=== PATIENT | male | born 1960 | race Caucasian/White ===

== ENCOUNTER 2016-11-29 00:08 | Emergency (ER) | payer OTHER ==
[2016-11-29] MEDS ORDERED: NS 1,000 ML IV ONE (00:14)
--- NOTE | 2016-11-29 00:19 | EDPHY ---
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 He presents emergency room with 1/10 right hand pain he has an open fracture of the 3rd digit and 4th digit distal aspect. It is noted his hand is very dirty and greasy. This time is hemodynamically stable no acute distress resting comfortably. No arterial bleeding or significant bleeding from his hand injury at this time. He is neurovascularly intact good cap refill, good pulse. Past Medical History: No significant medical history Past Surgical History: Denies significant surgical history Social History: Denies daily use drugs alcohol tobacco products, he is a mechanical engineering director right-hand dominant Family History: Noncontributory ROS REVIEW OF SYSTEMS: A comprehensive 10 point review of systems is otherwise negative aside from elements mentioned in the history of present illness. Exam Constitutional triage nursing summary reviewed, vital signs reviewed, awake/ alert. Eyes normal conjunctivae and sclera, EOMI, PERRLA. HENT normal inspection, atraumatic, moist mucus membranes, no epistaxis, neck supple/ no meningismus, no raccoon eyes. Respiratory clear to auscultation bilaterally, normal breath sounds, no respiratory distress, no wheezing. Cardiovascular rate normal, regular rhythm, no murmur, no edema, distal pulses normal. Gastrointestinal soft, non-tender, no rebound, no guarding, normal bowel sounds, no distension, no pulsatile mass. Genitourinary no CVA tenderness. Musculoskeletal right hand: Neurovascularly intact good cap refill, good pulses , good sensation, neurovascularly intact, does have a open fracture of the distal aspect of the 2rd and 3th digit with bone present. no midline vertebral tenderness, full range of motion, no calf swelling, no tenderness of extremities , no meningismus, good pulses, neurovascularly intact. The patient has laceration on the index finger 2nd digit is macerated, multiple pieces, bone involvement. 3rd digit laceration distal aspect, removed the nail from underneath the nail bed otherwise no obvious bone or open fracture. Skin pink, warm, & dry, no rash, skin atraumatic. Neurologic awake, alert and oriented x 3, AAOx3, moves all 4 extremities equally, motor intact, sensory intact, CN II-XII intact, normal cerebellar, normal vision, normal speech. Psychiatric normal mood/affect. Heme/Lymph/Immune no lymphadenopathy. Differential Diagnosis: Includes but is not limited to in a particular order: Right hand injury, soft tissue injury, multiple right hand fractures, degloving injury, distal phalanx fracture Medical Decision Making: this patient had an IV established will receive a g Ancef, his tetanus shot is up-to-date, he will have an x-ray of his right hand and I will need to consult Hand surgery. Patient's hand will be copiously cleaned here he will receive IV pain medicine Dilaudid for pain control. Re-evaluation: ED x-ray right hand: This shows a comminuted open fracture of the distal phalanx 3rd digit, also a fracture of the 2nd digit distal phalanx tuft fracture. Comminuted on the 3rd digit, and small fracture to the 2nd digit. Otherwise unremarkable. 1246: Spoke with Dr. Diego with Hand surgery. We reviewed the case. Plan for follow up in outpatient clinic on Saturday. Plan for antibiotics here in the emergency room, antibiotics for home, finger splints, and gentle closure of his wounds. Will perform digital block. 0150: spoke with Dr. Diego again about this patient's almost complete amputation of the distal phalanx of the middle finger and index finger. I was able to tack down the distal aspect of the soft tissue of the middle finger that was hanging off. I did have to remove his nail. As for his index finger was able to place the nail back under the nail bed without any sutures. Both fingers will be splinted, he will be sent home on antibiotics, [place] for pain control will have dressings in place. Plan is to see Dr. Diego with Hand surgery on Saturday or 1 day from now. The patient understands return emergency room if he has any further pain, fever, worsening swelling, bleeding or questions or concerns. He does understand that he has comminuted fractures of the distal phalanx of his index and middle finger. He will need to have the distal aspect of his middle finger amputated. 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 Laceration Repair Procedure: Verbal Consent was obtained, Under sterile conditions, The patient had lidocaine without epinephrine used approximately 10 ccs to local anesthetize the Index finger distal masserated Laceration. The wound was copiously irrigated with sterile fluid, the wound was explored for foreign bodies there were none visualized, the wound was explored with a sterile glove to the base. The nail was removed from the index finger, There are no deep structures involved, including no arterial injury. 3 interrupted 5 0 Prolene Sutures were placed in this patient's laceration. He had good close approximation of the wound edges. He Tolerated this well. The purpose of this was to tack down the macerated tissue at the end of the index finger. Patient had his index finger and middle finger or 2nd and 3rd digits he had a digital block performed of both digits by myself he tolerated this well this led to good local anesthesia of his significant macerated lacerations of his fingers. Source: Patient, EMS Constitutional: Initial Vital Signs Temperature (C) 36.5 C 11/29/16 00:16 Heart Rate 104 H 11/29/16 00:16 Respiratory Rate 18 11/29/16 00:16 Blood Pressure 127/77 H 11/29/16 00:16 O2 Sat (%) 97 11/29/16 00:16 O2 Delivery Mode Room Air Allergies/Adverse Reactions: No Known Allergies Allergy (Unverified 11/29/16 00:31) Home Medications: Medication Instructions Recorded Cephalexin [Keflex] 500 mg PO Q6H #28 cap 11/29/16 Hydrocodone/Acetaminophen 1 each PO Q4-6PRN PRN #30 tablet 11/29/16 [Hydrocodon-Acetaminophen 5-325] Medical Decision Making - Data Points Laboratory Results: Laboratory Results 11/29/16 00:30 11/29/16 00:30 11/29/16 00:30 WBC 7.00 10^3/uL (3.80-9.50) RBC 4.56 10^6/uL (4.40-6.38) Hgb 15.3 g/dL (13.7-17.5) Hct 42.7 % (40.0-51.0) MCV 93.6 fL (81.5-99.8) MCH 33.6 pg (27.9-34.1) MCHC 35.8 g/dL (32.4-36.7) RDW 12.1 % (11.5-15.2) Plt Count 203 10^3/uL (150-400) MPV 10.4 fL (8.7-11.7) Neut % (Auto) 54.8 % (39.3-74.2) Lymph % (Auto) 34.4 % (15.0-45.0) [place] % (Auto) 8.7 % (4.5-13.0) Eos % (Auto) 1.4 % (0.6-7.6) Baso % (Auto) 0.6 % (0.3-1.7) Nucleat RBC Rel Count 0.0 % (0.0-0.2) Absolute Neuts (auto) 3.83 10^3/uL (1.70-6.50) Absolute Lymphs (auto) 2.41 10^3/uL (1.00-3.00) Absolute Monos (auto) 0.61 10^3/uL (0.30-0.80) Absolute Eos (auto) 0.10 10^3/uL (0.03-0.40) Absolute Basos (auto) 0.04 10^3/uL (0.02-0.10) Absolute Nucleated RBC 0.00 10^3/uL (0-0.01) Immature Gran % 0.1 % (0.0-1.1) Immature Gran # 0.01 10^3/uL (0.00-0.10) PT 13.9 SEC (12.0-15.0) INR 1.08 (0.83-1.16) APTT 29.2 SEC (23.0-38.0) Sodium 146 H mEq/L (134-144) Potassium 4.1 mEq/L (3.5-5.2) Chloride 105 mEq/L (97-110) Carbon Dioxide 26 mEq/l (22-31) Anion Gap 15 mEq/L (8-16) BUN 24 H mg/dL (7-23) Creatinine 1.4 H mg/dL (0.7-1.3) Estimated GFR 52 Glucose 95 mg/dL (70-100) Calcium 9.2 mg/dL (8.5-10.4) Medications Given: Discontinued Medications Hydromorphone HCl (Dilaudid) 0.5 mg IVP ONCE ONE Stop: 11/29/16 00:33 Last Admin: 11/29/16 00:34 Dose: 0.5 mg Hydromorphone HCl (Dilaudid) 1 mg IVP ONCE ONE Stop: 11/29/16 01:43 Last Admin: 11/29/16 01:43 Dose: 1 mg Cefazolin Sodium/Dextrose (Ancef 1 Gm (Premix)) 50 mls @ 200 mls/hr IV EDNOW ONE PRN Reason: Protocol Stop: 11/29/16 00:28 Last Admin: 11/29/16 00:34 Dose: 50 mls Sodium Chloride (Ns) 1,000 mls @ 0 mls/hr IV ONCE ONE PRN Reason: Wide Open Stop: 11/29/16 00:15 Last Admin: 11/29/16 00:33 Dose: 1,000 mls Departure - Departure Disposition: Home, Routine, Self-Care Clinical Impression: Laceration Hand fracture, right Qualifiers: Encounter type: initial encounter Fracture type: open Qualifier Code: (S62.91XB ) Unspecified fracture of right wrist and hand, initial encounter for open fracture Condition: Fair Instructions: Hand Fracture (ED), Laceration (ED) Additional Instructions: 1. Please follow up with Dr. Diego with Hand surgery on Saturday. Please call this morning for your appointment. 2. Return to the emergency room if significant pain, bleeding or questions or concerns. 3. Please take antibiotic as prescribed. You did receive IV antibiotics here in the emergency room. 4. [place] for pain control do not drink alcohol while taking this medication or drive. He can make her sleepy. 5.Stay in your finger splints and padding for protection. Do not get this wet or dirty. Referrals: [place],. [Primary Care Provider] - As per Instructions Marlon Diego MD [Medical Doctor] - As per Instructions Prescriptions: Hydrocodone/Acetaminophen [Hydrocodon-Acetaminophen 5-325] 1 each PO Q4-6PRN PRN #30 tablet PRN Reason: Pain, Breakthrough Cephalexin [Keflex] 500 mg PO Q6H #28 cap
[2016-11-29] MEDS ORDERED: HYDROmorphONE/DILAUDID 1 MG/ML SYR ONE (00:22)
[2016-11-29] MEDS ORDERED: HYDROGEN PEROXIDE 236 ML BOTTLE TP ONE (00:30)
[2016-11-29] MEDS ORDERED: HYDROmorphONE/DILAUDID 1 MG/ML SYR IVP ONE ×2 (00:32→01:42)
[2016-11-29 00:35] LABS: % IMMATURE GRANULYOCYTES 0.1 % (0.0-1.1); ABSOLUTE IMMATURE GRANULOCYTES 0.01 10^3/uL (0.00-0.10); ADD DIFF? NO; ADD MORPH? NO; ADD SCAN? NO; ATYPICAL LYMPHOCYTE FLAG 0 (0-99); FRAGMENT RBC FLAG 0 (0-99); HEMATOCRIT 42.7 % (40.0-51.0); HEMOGLOBIN 15.3 g/dL (13.7-17.5); LEFT SHIFT FLG 0 (0-99); LIPEMIA HEMOLYSIS FLAG 90 (0-99); MEAN CELL HEMOGLOBIN 33.6 pg (27.9-34.1); MEAN CELL HEMOGLOBIN CONCENTR. 35.8 g/dL (32.4-36.7); MEAN CELL VOLUME 93.6 fL (81.5-99.8); MEAN PLATELET VOLUME 10.4 fL (8.7-11.7); PLATELET CLUMPS FLAG 0 (0-99); PLATELET COUNT 203 10^3/uL (150-400); RED BLOOD CELL COUNT 4.56 10^6/uL (4.40-6.38); RED CELL DISTRIBUTION WIDTH 12.1 % (11.5-15.2)
[2016-11-29 00:51] LABS: ANION GAP 15 mEq/L (8-16); CALCIUM 9.2 mg/dL (8.5-10.4); CARBON DIOXIDE 26 mEq/l (22-31); CHLORIDE 105 mEq/L (97-110); CREATININE 1.4 mg/dL (0.7-1.3); GLOMERULAR FILTRATION RATE 52; GLUCOSE 95 mg/dL (70-100); POTASSIUM 4.1 mEq/L (3.5-5.2); SODIUM 146 mEq/L (134-144)
[2016-11-29 00:54] LABS: INR 1.08 (0.83-1.16); PROTIME(PATIENT) 13.9 SEC (12.0-15.0)
[2016-11-29 00:55] LABS: APTT 29.2 SEC (23.0-38.0)
[2016-11-29] MEDS ORDERED: HYDROCOD/APAP 5/325 PREPACK#6 BTL TAKEHOME ONE (02:10)
[2016-11-29 02:51] VITALS: BP 91/66; PULSE 90; RESP 16; TEMP 97.3; O2SAT 94
--- NOTE | 2016-11-29 08:51 | DX ---
Right Hand, Three Views History: Hand caught in snowblower. Findings: Distal phalanx of long finger is severely disrupted, comminuted into many small fragments, which are widely displaced. Laceration of soft tissues is compatible with open fracture. Distal artic ular surface of the middle phalanx appears intact. Distal phalanx of the index finger has sustained fractures across the articular surface along the uln ar side, and also at the distal phalangeal tuft. Displacement is mild at the distal phalangeal tuft. The more proximal fracture is not displaced. The distal articular surface of the middle phalanx of th e index finger is intact. Laceration of the index finger is not as severe as the long finger. [place] ne ck deformity of the index finger suggests disruption of extensor tendon. Degenerative arthritis is in cidentally noted at the first carpometacarpal joint. Impression: 1. Very severely comminuted open fracture of distal phalanx of right long finger, essentially destroy ing the distal phalanx. 2. Two fractures of the distal phalanx of the right index finger, with suspicion of avulsion of exten sor tendon.
== END 2016-11-29 02:51 | disposition home or self-care (01) ==
LOC: EDUNIT#
PROC: 0HQFXZZ Repair Right Hand Skin, External Approach (ICD-10-PCS; principal; 2016-11-29)
DX: S62.91XB Unspecified fracture of right hand, initial encounter for open fracture (principal); S61.210A Laceration without foreign body of right index finger without damage to nail, initial encounter; S61.212A Laceration without foreign body of right middle finger without damage to nail, initial encounter; W45.8XXA Other foreign body or object entering through skin, initial encounter
CPT/HCPCS: 96374; J0690; J1170; L3925